=== PATIENT | male | born 1940 | race Hispanic/Latino ===

== ENCOUNTER 2020-04-18 19:38 | Emergency (ER) | payer MEDICARE ==
--- NOTE | 2020-04-18 21:12 | Emergency Department Report ---
ED General Adult HPI - General Chief complaint: High BP Stated complaint: HYPERTENSION Time Seen by Provider: 04/18/20 20:57 Source: patient Mode of arrival: Stretcher Limitations: No Limitations - History of Present Illness Initial comments: 80 yo M pt presents with complaints of elevated blood pressure x today. Pt reports after helping his family move earlier and doing a great deal of physical exertion, his blood pressure was around 210/87. He states at the time, he did experience a hot feeling to the front of his forehead, but denies any headache, vision changes, numbness/tingling/weakness in his limbs, difficulty with speech/ambulation, chest pain, shortness of breath, confusion, or memory loss. Pt states he is feeling well at this time and denies any complaints.He states compliance with his lisinopril and follows with [facility]. He denies any hx of CVA or blood thinner use. No head trauma per pt. He states his next PCP appointment in 1 week from today. - Related Data Allergies Allergy/AdvReac Type Severity Reaction Status Date / Time No Known Allergies Allergy Unverified 04/18/20 20:45 ED Review of Systems ROS: Stated complaint: HYPERTENSION Other details as noted in HPI Constitutional: denies: chills, diaphoresis, fever, malaise, weakness Eyes: denies: eye pain, vision change Respiratory: denies: cough, shortness of breath Cardiovascular: denies: palpitations Endocrine: denies: excessive sweating Gastrointestinal: denies: abdominal pain, nausea, vomiting Genitourinary: denies: urgency, dysuria, frequency, hematuria Musculoskeletal: denies: joint swelling Skin: denies: change in color Neurological: denies: headache, weakness, numbness, paresthesias, confusion, abnormal gait Hematological/Lymphatic: denies: easy bleeding ED Past Medical Hx - Past Medical History Previous Medical History?: Yes Hx Hypertension: Yes Hx Diabetes: Yes - Surgical History Past Surgical History?: Yes Additional Surgical History: Right Shoulder - Social History Smoking Status: Never Smoker Substance Use Type: None ED Physical Exam - General Limitations: No Limitations General appearance: alert, in no apparent distress - Head Head exam: Present: atraumatic, normocephalic - Eye Eye exam: Present: normal appearance, PERRL, EOMI. Absent: scleral icterus - ENT ENT exam: Present: mucous membranes moist - Neck Neck exam: Present: normal inspection - Respiratory Respiratory exam: Present: normal lung sounds bilaterally. Absent: respiratory distress - Cardiovascular Cardiovascular Exam: Present: regular rate, normal rhythm - GI/Abdominal GI/Abdominal exam: Present: soft, normal bowel sounds. Absent: distended, tenderness, guarding, rebound, rigid - Extremities Exam Extremities exam: Present: full ROM - Back Exam Back exam: Present: full ROM - Neurological Exam Neurological exam: Present: alert, oriented X3, CN II-XII intact, normal gait. Absent: motor sensory deficit - Expanded Neurological Exam Expanded Sensory exam: Upper Extremity Light Touch: Normal, Lower Extremity Light Touch: Normal Motor strength exam: RUE: 5, LUE: 5, RLE: 5, LLE: 5 - Psychiatric Psychiatric exam: Present: normal affect, normal mood - Skin Skin exam: Present: warm, dry, intact, normal color. Absent: rash, cyanosis, diaphoretic, erythema ED Course Vital Signs 04/18/20 20:35 Temperature 98.1 F Pulse Rate 56 L Respiratory 18 Rate Blood Pressure 174/76 O2 Sat by Pulse 97 Oximetry ED Medical Decision Making - Medical Decision Making 80 yo M pt presents with complaints of elevated blood pressure x today. Pt reports after helping his family move earlier and doing a great deal of physical exertion, his blood pressure was around 210/87. He states at the time, he did experience a hot feeling to the front of his forehead, but denies any headache, vision changes, numbness/tingling/weakness in his limbs, difficulty with speech/ambulation, chest pain, shortness of breath, confusion, or memory loss. Pt states he is feeling well at this time and denies any complaints.He states compliance with his lisinopril and follows with [facility]. He denies any hx of CVA or blood thinner use. No head trauma per pt. He states his next PCP appointment in 1 week from today. Neuro exam is normal. Pt continues to deny any symptoms. BP 176/76. Discussed with Dr. Warner who states no workup is indicated at this time given hx and physical. Pt to f/u with his PCP in 1 week, recommend continued checking of BP and discussed in great detail signs and symptoms that should prompt immediate return to the ED in detail with pt who verbalizes understanding. Critical care attestation.: If time is entered above; I have spent that time in minutes in the direct care of this critically ill patient, excluding procedure time. ED Disposition Clinical Impression: Elevated blood pressure reading Disposition: 01 TO HOME OR SELFCARE Is pt being admited?: No Condition: Stable Instructions: Hypertension, Adult Referrals: GERALD JURADO MD [Primary Care Provider] - 2-3 Days
[2020-04-18 21:21] VITALS: BP 187/82
== END 2020-04-18 21:29 | disposition home or self-care (01) ==
LOC: ED 19:38
DX: I10 Essential (primary) hypertension (principal); E11.9 Type 2 diabetes mellitus without complications; Z98.890 Other specified postprocedural states